=== PATIENT | female | born 1970 | race Caucasian/White ===

== ENCOUNTER 2022-06-21 13:06 | Outpatient (CLI) | payer OTHER, SELFPAY ==
--- NOTE | 2022-06-21 13:20 | CRLHL7_ITS ---
For Patients: As a result of the Century Cures Act, medical imaging exams and procedure reports are released immediately into your electronic medical record. You may view this report before your referring provider. If you have questions, please contact your health care provider. BILATERAL SCREENING MAMMOGRAM WITH COMPUTER-AIDED DETECTION TECHNIQUE: CC and MLO views were obtained. These mammographic images have been obtained using full-field digital technique. These mammographic images were interpreted with the benefit of computer-aided detection. COMPARISON FILM: 07/13/2008. FINDINGS: There are scattered areas of fibroglandular density IMPRESSION: There is no radiographic evidence for malignancy. ASSESSMENT: BI-RADS Category 1: Negative RECOMMENDATION: Routine screening mammogram in 1 year. A lay language report of this examination will be provided to the patient. Olayinka Umaña M.D. Diagnostic Radiologist [email or web address] GABE/Dictated by: Olayinka Umaña MD @ 06/26/2022 8:45:00 AM (Electronically Signed)
== END 2022-06-21 13:07 | disposition home or self-care (01) ==
LOC: MAMMO 13:06
PROVIDERS: Visit Provider Physician Assistant Medical
DX: Z12.31 Encounter for screening mammogram for malignant neoplasm of breast (principal)
CPT/HCPCS: 77063; 77067

== ENCOUNTER 2022-06-25 08:18 | Outpatient (CLI) | payer OTHER, SELFPAY ==
[2022-06-25 08:49] LABS: Basophils Percent Auto 0.6 % (0.0-3.0); Hematocrit 39.2 % (33.0-51.0); Hemoglobin* 13.4 gm/dL (12.0-16.0); Immature Granulocytes Pct Auto 0.2 %; Lymphocytes Percent Auto 24.8 % (20-44); Mean Corpuscular HGB Conc 34 gm/dL (32-36); Mean Corpuscular Hemoglobin 31 pg (26-34); Mean Corpuscular Volume 91 fL (80-100); Monocytes Percent Auto 7.3 % (0.0-11.0); Neutrophils Percent Auto 66.1 % (42.0-72.0); Platelet Count* 435 K/uL (140-440); RDW Coefficient of Variation % 13.3 % (11.5-15.5); Red Blood Count 4.31 m/uL (4.00-5.20); White Blood Count* 12.51 K/uL (4.50-11.00)
[2022-06-25 08:53] LABS: Slide Review Reflex No
[2022-06-25 14:41] LABS: Chloride* 105 mmol/L (96-114)
[2022-06-25 14:42] LABS: Albumin* 4.6 g/dL (3.3-5.0); Potassium* 3.9 mmol/L (3.6-5.1); Sodium* 136 mmol/L (135-149)
[2022-06-25 14:44] LABS: Creatinine* 0.7 mg/dL (0.5-1.5); Estimated Glomerular Filt Rate 104 ml/min
[2022-06-25 14:45] LABS: Alanine Aminotransferase* 24 U/L (4-35); Alkaline Phosphatase* 79 U/L (40-150); Aspartate Amino Transferase* 26 U/L (12-35); Bilirubin Total* 0.3 mg/dL (0.1-1.5); Blood Urea Nitrogen* 10 mg/dL (7-30); Carbon Dioxide* 20 mmol/L (20-32); Glucose* 108 mg/dL (60-115); Total Protein* 7.4 g/dL (6.0-8.3)
[2022-06-25 14:46] LABS: Calcium* 9.5 mg/dL (8.4-10.6); Cholesterol* 225 mg/dL (90-199); HDL Cholesterol* 66 mg/dL (>=50); LDL Cholesterol Calculated 139 mg/dL (<100); Triglycerides* 102 mg/dL (40-149)
[2022-06-25 14:56] LABS: C Reactive Protein* < 0.5 mg/dL (0.5-1.0)
[2022-06-25 15:33] LABS: TSH With Reflex to FT4* 0.834 uIU/mL (0.270-4.200)
== END 2022-06-25 08:19 | disposition home or self-care (01) ==
PROVIDERS: Visit Provider Physician Assistant Medical
DX: Z00.00 Encounter for general adult medical examination without abnormal findings (principal); R19.7 Diarrhea, unspecified; Z13.6 Encounter for screening for cardiovascular disorders; Z13.29 Encounter for screening for other suspected endocrine disorder
CPT/HCPCS: 80053; 80061; 83516; 84443; 85025; 86140

== ENCOUNTER 2022-06-27 12:51 | Emergency (ER) | payer OTHER, SELFPAY ==
[2022-06-27 13:00] VITALS: BP 145/94; PULSE 110; RESP 16; TEMP 36.7; O2SAT 100; BMI 34.2
--- NOTE | 2022-06-27 13:15 | CRLHL7_ITS ---
For Patients: As a result of the Century Cures Act, medical imaging exams and procedure reports are released immediately into your electronic medical record. You may view this report before your referring provider. If you have questions, please contact your health care provider. INDICATION: Abdominal pain TECHNIQUE: CT abdomen and pelvis without contrast COMPARISON: None. FINDINGS: Kidney/ureters: Kidneys are normal in caliber. Punctate bilateral intrarenal calculi. No ureteral stones and no hydronephrosis. No sign of perinephric inflammation. Ureters are normal in caliber. Decompressed bladder. Liver/gallbladder/bile ducts: The liver is normal in size, shape and attenuation. Gallbladder is normal without visualized stones or inflammation. No biliary dilatation. Spleen/pancreas/adrenal glands: The spleen, adrenal glands and pancreas are within normal limits. GI tract: No evidence of bowel obstruction. Normal appendix. Abdominal wall/omentum/peritoneum: No free air or significant free fluid. Mild misting of the mesentery with associated subcentimeter mesenteric lymph nodes. There is some associated mass-effect on the adjacent loops of small bowel. Finding can be seen with sclerosing mesenteritis. Lymph nodes: No enlarged lymph nodes by size criteria. Pelvis: Unremarkable pelvis. Lower chest: Unremarkable. Bones: No acute fracture or gross mass lesion. IMPRESSION: 1. Mild misting of the mesentery with associated subcentimeter mesenteric lymph nodes. There is some associated mass-effect on the adjacent loops of small bowel. Finding can be seen with sclerosing mesenteritis. 2. Chronic diverticulosis without evidence of acute diverticulitis. 3. Punctate bilateral intrarenal calculi. No ureteral stones and no hydronephrosis. Please note that all CT scans at this facility use dose modulation, iterative reconstruction, and/or weight-based dosing when appropriate to reduce radiation dose to as low as reasonably achievable. Dictated by Daquan Castañeda MD @ 06/27/2022 2:04:13 PM (Electronically Signed)
--- NOTE | 2022-06-27 13:17 | ED_ITS ---
HPI - General Adult General Time Seen by Provider: 13:17 Date Seen: 06/27/22 Chief complaint: Abdominal Pain Stated complaint: Gallbladder issue Time Seen by Provider: 06/27/22 13:06 Source: patient Mode of arrival: ambulatory Limitations: no limitations History of Present Illness HPI narrative: Patient is a 52 year white female who reports several month history of intermittent abdominal discomfort after eating. She thought that she was gluten intolerant for long period of time. More recently has had some pain in her right upper quadrant right lateral quadrant and through to her back. This followed last episode of eating [place] fri[facility] Patient denies fever chills, change in bowel or bladder color. Has not had an ultrasound, was being worked up for gluten sensitivity. She sees [facility] for primary care. She reports she had 3 bowel movements no blood over the last couple of hours x3. At this point she feels better she was having right-sided abdominal pain that radiated to her back. As mentioned no fevers, chills, rigors, COVID symptoms, dysuria frequency, hematuria, or hematemesis or melena. Patient presents to the ED on recommendation for primary care doctor Related Data Previous Rx's Medication Instructions Recorded trazodone 50 mg tablet 50 mg PO QDAY #30 tabs 06/20/22 peg 3350-electrolytes 236 240 ml PO Q10M #4,000 mL 06/25/22 gram-22.74 gram-6.74 gram-5.86 gram solution (Golytely) Allergies Allergy/AdvReac Type Severity Reaction Status Date / Time tagaderm Allergy Severe rash Uncoded 06/20/22 12:41 Review of Systems Status of ROS: Reports: 10 or more systems reviewed and unremarkable except as noted in History and below [facility] Family History Mother High blood pressure Sister No problems noted. Son History of kidney cancer, Onset Age: 8 Father Lung cancer Coronary artery disease Social History Narrative: . Two children, sons. Non-smoker Smoking Status: Never smoker Do you use any of these nicotine containing products: None Second hand tobacco smoke exposure: No How often do you have a drink containing alcohol: monthly or less How many standard drinks containing alcohol do you have on a typical day: 1 or 2 How often do you have six or more drinks on one occasion: Less than monthly AUDIT-C Alcohol total score: 2 Non-prescribed substance use: denies use Little interest or pleasure in doing things: not at all Feeling down, depressed, or hopeless: several days service: No Exam Narrative: Exam Narrative: Objective: The patient is in no apparent distress, conversant Vital signs unremarkable other pulse elevated 110 HEENT is unremarkable no scleral icterus Abdomen is nontender, no rebound, no masses Extremities are no edema Neurologic nonfocal Peripheral perfusion is good Skin is warm and dry Const: Vital Signs, click to edit/add: Vital Signs - 24 hr 06/27/22 13:00 Temperature 98.1 F Pulse Rate [Left P ulse Oximeter] 110 H Respiratory Rate 16 Blood Pressure [Ri ght Upper Arm] 145/94 H Pulse Oximetry 100 Oxygen Delivery Me thod Room Air Course Vital Signs Vital signs: Initial Vital Signs Temperature 98.1 F 06/27/22 13:00 Temperature Source Temporal Artery Scan 06/27/22 13:00 Pulse Rate 110 H 06/27/22 13:00 Pulse Rhythm 06/27/22 13:00 Pulse Strength 3+ Normal 06/27/22 13:00 Respiratory Rate 16 06/27/22 13:00 Blood Pressure 145/94 H 06/27/22 13:00 Blood Pressure Mean 111 06/27/22 13:00 Blood Pressure Position Sitting 06/27/22 13:00 Pulse Oximetry 100 06/27/22 13:00 Oxygen Delivery Method 06/27/22 13:00 Vital Signs Temperature 98.1 F 06/27/22 13:00 Pulse Rate 110 H 06/27/22 13:00 Respiratory Rate 16 06/27/22 13:00 Blood Pressure 145/94 H 06/27/22 13:00 Pulse Oximetry 100 06/27/22 13:00 Oxygen Delivery Method 06/27/22 13:00 Temperature 98.1 F 06/27/22 13:00 Pulse Rate 110 H 06/27/22 13:00 Respiratory Rate 16 06/27/22 13:00 Blood Pressure 145/94 H 06/27/22 13:00 Pulse Oximetry 100 06/27/22 13:00 Oxygen Delivery Method 06/27/22 13:00 Medical Decision Making [facility] Narrative Medical decision making narrative: Patient is a 52-year-old perimenopausal female who for the last several months has had postprandial for the most part abdominal pain and diarrhea. I think at this time the most valuable test be a CT scan of the abdomen pelvis rule out inflammatory bowel disease, gallstones, any evidence of obstruction. Will also check laboratories, electrolytes, TSH, will give IV fluid as well. Disposition pending findings above. May actually need a right upper quadrant ultrasound after CT if it demonstrates gallstones. Addendum: No evidence of gallstones, or gallbladder inflammation, white count is just minimally elevated but CRP is negative. There is some evidence of mesenteric inflammation, but this would be more of a chronic issue I am not sure that that would make sense in the setting, but I think consultation with General surgery be appropriate, consider HIDA or gallbladder ultrasound or other diagnostic studies. Patient will gauge in light diet, light activity follow up with General surgery as scheduled thanks Lab Data Labs: Lab Results 06/27/22 06/27/22 06/27/22 Range/Units 13:38 13:40 13:40 WBC 11.95 H (4.50-11.00) K/uL RBC 4.10 (4.00-5.20) m/uL Hgb 12.7 (12.0-16.0) gm/dL Hct 37.7 (33.0-51.0) % MCV 92 (80-100) fL MCH 31 (26-34) pg MCHC 34 (32-36) gm/dL RDW Coeff of Lorena 13.5 (11.5-15.5) % Plt Count 407 (140-440) K/uL Neut % (Auto) 77.5 H (42.0-72.0) % Lymph % (Auto) 15.2 L (20-44) % Kimble % (Auto) 5.8 (0.0-11.0) % Eos % (Auto) 0.3 (0.0-7.0) % Baso % (Auto) 0.5 (0.0-3.0) % Neut # (Auto) 9.30 H (1.7-7.0) K/uL Lymph # (Auto) 1.80 (0.90-2.90) K/uL Kimble # (Auto) 0.70 (0.00-0.90) K/UL Eos # (Auto) 0.00 (0.00-0.50) K/uL Baso # (Auto) 0.10 (0.00-0.30) K/uL Abs Immat Gran (auto) 0.08 (0.00-0.30) K/uL Sodium 137 (135-149) mmol/L Potassium 3.8 (3.6-5.1) mmol/L Chloride 104 (96-114) mmol/L Carbon Dioxide 23 (20-32) mmol/L BUN 12 (7-30) mg/dL Creatinine 0.7 (0.5-1.5) mg/dL Estimated Creat Clear 74.35 Estimated GFR 104 ml/min Glucose 139 H (60-115) mg/dL Calcium 9.1 (8.4-10.6) mg/dL Total Bilirubin 0.2 (0.1-1.5) mg/dL Direct Bilirubin 0.2 (0.0-0.5) mg/dL AST 26 (12-35) U/L ALT 22 (4-35) U/L Alkaline Phosphatase 75 (40-150) U/L C-Reactive Protein < 0.5 L (0.5-1.0) mg/dL Total Protein 7.8 (6.0-8.3) g/dL Albumin 4.7 (3.3-5.0) g/dL Amylase 73 (18-89) U/L TSH (0.270-4.20) uIU/mL Urine Color Yellow (Yellow) Urine Appearance Slightly Cloudy A (Clear) Urine pH 6.0 (5.0-8.5) Ur Specific Garrett >= 1.030 (1.000-1.030) Urine Protein Trace A (Negative) Urine Glucose (UA) Negative (Negative) Urine Ketones 3+ A (Negative) Urine Blood 2+ A (Negative) Urine Nitrite Negative (Negative) Urine Bilirubin Negative (Negative) Urine Urobilinogen 0.2 (0.2-1.0) Ur Leukocyte Esterase Negative (Negative) Urine RBC 2-5 A (0-2) Urine WBC 0-2 (0-5) Ur Squamous Epith Cells Few (None-Few) Urine Bacteria Few A (None) Urine Mucus Few A (None) 06/27/22 Range/Units 13:40 WBC (4.50-11.00) K/uL RBC (4.00-5.20) m/uL Hgb (12.0-16.0) gm/dL Hct (33.0-51.0) % MCV (80-100) fL MCH (26-34) pg MCHC (32-36) gm/dL RDW Coeff of Lorena (11.5-15.5) % Plt Count (140-440) K/uL Neut % (Auto) (42.0-72.0) % Lymph % (Auto) (20-44) % Kimble % (Auto) (0.0-11.0) % Eos % (Auto) (0.0-7.0) % Baso % (Auto) (0.0-3.0) % Neut # (Auto) (1.7-7.0) K/uL Lymph # (Auto) (0.90-2.90) K/uL Kimble # (Auto) (0.00-0.90) K/UL Eos # (Auto) (0.00-0.50) K/uL Baso # (Auto) (0.00-0.30) K/uL Abs Immat Gran (auto) (0.00-0.30) K/uL Sodium (135-149) mmol/L Potassium (3.6-5.1) mmol/L Chloride (96-114) mmol/L Carbon Dioxide (20-32) mmol/L BUN (7-30) mg/dL Creatinine (0.5-1.5) mg/dL Estimated Creat Clear Estimated GFR ml/min Glucose (60-115) mg/dL Calcium (8.4-10.6) mg/dL Total Bilirubin (0.1-1.5) mg/dL Direct Bilirubin (0.0-0.5) mg/dL AST (12-35) U/L ALT (4-35) U/L Alkaline Phosphatase (40-150) U/L C-Reactive Protein (0.5-1.0) mg/dL Total Protein (6.0-8.3) g/dL Albumin (3.3-5.0) g/dL Amylase (18-89) U/L TSH 1.140 (0.270-4.20) uIU/mL Urine Color (Yellow) Urine Appearance (Clear) Urine pH (5.0-8.5) Ur Specific Garrett (1.000-1.030) Urine Protein (Negative) Urine Glucose (UA) (Negative) Urine Ketones (Negative) Urine Blood (Negative) Urine Nitrite (Negative) Urine Bilirubin (Negative) Urine Urobilinogen (0.2-1.0) Ur Leukocyte Esterase (Negative) Urine RBC (0-2) Urine WBC (0-5) Ur Squamous Epith Cells (None-Few) Urine Bacteria (None) Urine Mucus (None) Discharge Plan Discharge Clinical Impression: Abdominal pain Patient Disposition: Home w/ Parent or Adult Condition: Stable Additional Instructions: Light diet, recommend general surgical followup for of her abdominal pain and discomfort. Please make appointment our general surgery clinic for the patient. Light diet, Tylenol as needed, return sooner problems or concerns. continue home meds Appointment scheduled at [facility] with Dr. Don on Saturday, July 04, 2022 at 10:45am, with arrival at 10:30am. Activity Level: No Restrictions Discharge Diet: Heart Healthy (2 gm sodium, low fat) Prescriptions: No Action trazodone 50 mg tablet 50 mg PO QDAY Qty: 30 0RF Rx Instructions: 1 tablet nightly peg 3350-electrolytes [Golytely] 236-22.74-6.74 -5.86 gram recon soln 240 ml PO Q10M Qty: 4000 0RF Rx Instructions: until fecal effluent is clear Follow Up/Referrals: Cary Palomo PA-C [Primary Care Provider] - Stand Alone Forms: MyHealth Info Instructions
[2022-06-27] MEDS: 0.9 % SODIUM CHLORIDE 1000 ml 1,000 ML 6000 ML IV (13:50)
[2022-06-27 14:10] LABS: Albumin* 4.7 g/dL (3.3-5.0); Chloride* 104 mmol/L (96-114); Sodium* 137 mmol/L (135-149)
[2022-06-27 14:11] LABS: Potassium* 3.8 mmol/L (3.6-5.1)
[2022-06-27 14:13] LABS: Amylase* 73 U/L (18-89); Creatinine* 0.7 mg/dL (0.5-1.5); Est. Creatinine Clearance* 74.35; Estimated Glomerular Filt Rate 104 ml/min
[2022-06-27 14:14] LABS: Alanine Aminotransferase* 22 U/L (4-35); Alkaline Phosphatase* 75 U/L (40-150); Aspartate Amino Transferase* 26 U/L (12-35); Bilirubin Direct* 0.2 mg/dL (0.0-0.5); Bilirubin Total* 0.2 mg/dL (0.1-1.5); Blood Urea Nitrogen* 12 mg/dL (7-30); Calcium* 9.1 mg/dL (8.4-10.6); Carbon Dioxide* 23 mmol/L (20-32); Glucose* 139 mg/dL (60-115); Total Protein* 7.8 g/dL (6.0-8.3)
[2022-06-27 14:18] LABS: C Reactive Protein* < 0.5 mg/dL (0.5-1.0)
[2022-06-27 14:32] LABS: Appearance Urine Slightly Cloudy (Clear); Bilirubin Urine Negative (Negative); Blood Urine 2+ (Negative); Color Urine Yellow (Yellow); Glucose Urine Negative (Negative); Ketones Urine 3+ (Negative); Leukocyte Esterase Urine Negative (Negative); Nitrite Urine Negative (Negative); Protein Urine Trace (Negative); Specific Gravity Urine >= 1.030 (1.000-1.030); Squamous Epithelial Cell Urine Few (None-Few); Urobilinogen Urine 0.2 (0.2-1.0); WBC Urine 0-2 (0-5)
[2022-06-27 14:33] LABS: Bacteria Urine Few; Basophils Percent Auto 0.5 % (0.0-3.0); Eosinophils Percent Auto 0.3 % (0.0-7.0); Hematocrit 37.7 % (33.0-51.0); Hemoglobin* 12.7 gm/dL (12.0-16.0); Immature Granulocytes Abs Auto 0.08 K/uL (0.00-0.30); Lymphocytes Percent Auto 15.2 % (20-44); Mean Corpuscular HGB Conc 34 gm/dL (32-36); Mean Corpuscular Hemoglobin 31 pg (26-34); Mean Corpuscular Volume 92 fL (80-100); Monocytes Percent Auto 5.8 % (0.0-11.0); Mucus Urine Few; Neutrophils Percent Auto 77.5 % (42.0-72.0); Platelet Count* 407 K/uL (140-440); RDW Coefficient of Variation % 13.5 % (11.5-15.5); White Blood Count* 11.95 K/uL (4.50-11.00)
[2022-06-27 14:34] LABS: Slide Review Reflex No
== END 2022-06-27 15:03 | disposition home or self-care (01) ==
PROVIDERS: Emergency Provider Family Medicine; PCP Physician Assistant Medical
DX: R10.11 Right upper quadrant pain (principal)
CPT/HCPCS: 36415; 74176; 80048; 80076; 81001; 82150; 84443; 85025; 86140; 87086; 99284; J7030

== ENCOUNTER 2022-07-06 11:57 | Outpatient (CLI) | payer OTHER, SELFPAY | END 2022-07-06 11:58 | disposition home or self-care (01) | LOC: OP CLINIC 11:58 | PROVIDERS: PCP Physician Assistant Medical; Visit Provider Internal Medicine | DX: Z12.11 Encounter for screening for malignant neoplasm of colon (principal); K57.30 Diverticulosis of large intestine without perforation or abscess without bleeding; K21.9 Gastro-esophageal reflux disease without esophagitis | CPT/HCPCS: 43239; 45380; 88305; 99153; J2250; J3010 ==

== ENCOUNTER 2022-11-30 08:09 | Outpatient (CLI) | payer OTHER, SELFPAY ==
[2022-11-30 11:22] LABS: Cholesterol* 210 mg/dL (90-199); Glucose* 108 mg/dL (60-115); HDL Cholesterol* 67 mg/dL (>=50); LDL Cholesterol Calculated 114 mg/dL (<100); Triglycerides* 145 mg/dL (40-149)
== END 2022-11-30 08:10 | disposition home or self-care (01) ==
LOC: NFLDREF 08:09
PROVIDERS: PCP Physician Assistant Medical; Visit Provider Physician Assistant Medical
DX: Z00.00 Encounter for general adult medical examination without abnormal findings (principal); E78.5 Hyperlipidemia, unspecified; Z13.1 Encounter for screening for diabetes mellitus
CPT/HCPCS: 80061; 82947

== ENCOUNTER 2023-07-23 19:22 | Outpatient (CLI) | payer OTHER, SELFPAY ==
--- NOTE | 2023-07-23 19:30 | CRLHL7_ITS ---
For Patients: As a result of the Century Cures Act, medical imaging exams and procedure reports are released immediately into your electronic medical record. You may view this report before your referring provider. If you have questions, please contact your health care provider. BILATERAL SCREENING MAMMOGRAM WITH COMPUTER-AIDED DETECTION AND TOMOSYNTHESIS TECHNIQUE: CC and MLO views were obtained. These mammographic images have been obtained using full-field digital technique. These mammographic images were interpreted with the benefit of computer-aided detection. Breast tomosynthesis was used in this interpretation. COMPARISON FILM: 06/21/22. FINDINGS: There are scattered areas of fibroglandular density. IMPRESSION: There is no radiographic evidence for malignancy. ASSESSMENT: BI-RADS Category 1: Negative RECOMMENDATION: Routine screening mammogram in 1 year. A lay language report of this examination will be provided to the patient. OLAYINKA FOREMAN M.D. Diagnostic Radiologist [email or web address] Transcribed: 07/25/2023, 6:[address]/Dictated by: Olayinka Foreman MD @ 07/25/2023 12:55:00 PM (Electronically Signed)
== END 2023-07-23 19:23 | disposition home or self-care (01) ==
LOC: MAMMO 19:22
PROVIDERS: PCP Physician Assistant Medical; Visit Provider Physician Assistant Medical
DX: Z12.31 Encounter for screening mammogram for malignant neoplasm of breast (principal)
CPT/HCPCS: 77063; 77067

== ENCOUNTER 2023-08-20 08:07 | Outpatient (CLI) | payer OTHER, SELFPAY | END 2023-08-20 08:08 | disposition home or self-care (01) | LOC: NFLDREF 08-21 11:40 | PROVIDERS: PCP Physician Assistant Medical; Referring Provider Physician Assistant Medical; Visit Provider Physician Assistant Medical | DX: Z00.00 Encounter for general adult medical examination without abnormal findings (principal); K90.0 Celiac disease; N92.6 Irregular menstruation, unspecified; E55.9 Vitamin D deficiency, unspecified; E78.5 Hyperlipidemia, unspecified; R03.0 Elevated blood-pressure reading, without diagnosis of hypertension; R19.7 Diarrhea, unspecified | CPT/HCPCS: 80053; 80061; 82306; 83540; 83550 ==

== ENCOUNTER 2023-08-22 10:45 | Outpatient (CLI) | payer OTHER, SELFPAY | END 2023-08-22 10:46 | disposition home or self-care (01) | PROVIDERS: PCP Physician Assistant Medical; Visit Provider Physician Assistant Medical | DX: Z00.00 Encounter for general adult medical examination without abnormal findings (principal); N92.6 Irregular menstruation, unspecified | CPT/HCPCS: 80323; 83001; 84443 ==

== ENCOUNTER 2023-08-28 13:03 | Outpatient (CLI) | payer OTHER, SELFPAY ==
--- NOTE | 2023-08-28 13:00 | CRLHL7_ITS ---
For Patients: As a result of the Century Cures Act, medical imaging exams and procedure reports are released immediately into your electronic medical record. You may view this report before your referring provider. If you have questions, please contact your health care provider. INDICATION: KNOWN CERVICAL POLYP COMPARISON: none TECHNIQUE: 2D preciado scale and color Doppler images were acquired of the pelvis using a transabdominal and transvaginal approach. FINDINGS: Hypoechoic solid nodule in the endocervix with internal vascularity measuring 1.1 x 0.9 x 1.2 cm corresponding to the known cervical polyp. Uterus measures 7.1 cm in length by 4.2 cm in AP diameter by 5.2 cm in transverse dimension. The myometrium has a heterogeneous echotexture. The endometrial lining appears normal and measures 5 mm in composite thickness. The right ovary measures 2.6 x 0.8 x 1.4 cm in size and the left ovary measures 2.4 x 1.4 x 1.5 cm. The ovaries demonstrate normal arterial and venous blood flow on color Doppler analysis. There are no suspicious fluid collections within the cul-de-sac. IMPRESSION: 1.2 cm cervical polyp. Dictated by Olayinka Umaña MD @ 08/29/2023 8:28:07 AM (Electronically Signed)
== END 2023-08-28 13:04 | disposition home or self-care (01) ==
PROVIDERS: PCP Physician Assistant Medical; Visit Provider Physician Assistant Medical
DX: N84.1 Polyp of cervix uteri (principal); N92.6 Irregular menstruation, unspecified
CPT/HCPCS: 76830; 76856

== ENCOUNTER 2024-07-28 18:14 | Outpatient (CLI) | payer OTHER, SELFPAY ==
--- NOTE | 2024-07-28 18:20 | CRLHL7_ITS ---
For Patients: As a result of the Cures Act, medical imaging exams and procedure reports are released immediately into your electronic medical record. You may view this report before your referring provider. If you have questions, please contact your health care provider. BILATERAL SCREENING MAMMOGRAM WITH COMPUTER-AIDED DETECTION AND TOMOSYNTHESIS TECHNIQUE: CC and MLO views were obtained. These mammographic images have been obtained using full-field digital technique. These mammographic images were interpreted with the benefit of computer-aided detection. Breast Tomosynthesis was used in this interpretation. COMPARISON FILM: 06/21/22, 07/23/23. FINDINGS: There are scattered areas of fibroglandular density IMPRESSION: There is no radiographic evidence for malignancy. ASSESSMENT: BI-RADS Category 1: Negative RECOMMENDATION: Routine screening mammogram in 1 year. A lay language report of this examination will be provided to the patient. Olayinka Umaña M.D. Diagnostic Radiologist [email or web address] Transcribed: 2:53 p.moses baltazar/Dictated by: Olayinka Umaña MD @ 08/03/2024 11:50:00 AM (Electronically Signed)
== END 2024-07-28 18:15 | disposition home or self-care (01) ==
LOC: MAMMO 18:15
PROVIDERS: PCP Physician Assistant Medical; Visit Provider Physician Assistant Medical
DX: Z12.31 Encounter for screening mammogram for malignant neoplasm of breast (principal)
CPT/HCPCS: 77063; 77067

== ENCOUNTER 2024-08-25 07:53 | Outpatient (CLI) | payer OTHER, SELFPAY | END 2024-08-25 07:54 | disposition home or self-care (01) | LOC: NFLDREF 10:29 | PROVIDERS: PCP Physician Assistant Medical; Referring Provider Physician Assistant Medical; Visit Provider Physician Assistant Medical | DX: Z00.00 Encounter for general adult medical examination without abnormal findings (principal); E55.9 Vitamin D deficiency, unspecified; E78.5 Hyperlipidemia, unspecified; N95.1 Menopausal and female climacteric states; R03.0 Elevated blood-pressure reading, without diagnosis of hypertension; G47.9 Sleep disorder, unspecified | CPT/HCPCS: 80053; 80061; 80323; 84443; 87086 ==

== ENCOUNTER 2025-08-16 09:07 | Outpatient (CLI) | payer BC, SELFPAY ==
--- NOTE | 2025-08-16 09:15 | CRLHL7_ITS ---
For Patients: As a result of the Century Cures Act, medical imaging exams and procedure reports are released immediately into your electronic medical record. You may view this report before your referring provider. If you have questions, please contact your health care provider. INDICATION: BILATERAL SCREENING MAMMOGRAM, ASYMPTOMATIC 55 Y/O FEMALE COMPARISON: 07/28/2024, 07/23/2023, 06/21/2022 TECHNIQUE: Digital mammogram in CC and MLO projections including computer-aided detection (CAD) and tomosynthesis. BREAST COMPOSITION: There are scattered areas of fibroglandular density. FINDINGS: No suspicious findings. ASSESSMENT: BI-RADS 1 Negative RECOMMENDATION: Annual screening mammogram. A lay language report of this examination will be provided to the patient. Dictated by: Olayinka Umaña MD @ 08/16/2025 10:36:15 (Electronically Signed)
== END 2025-08-16 09:08 | disposition home or self-care (01) ==
LOC: MAMMO 09:09
PROVIDERS: PCP Physician Assistant Medical; Visit Provider Physician Assistant Medical
DX: Z12.31 Encounter for screening mammogram for malignant neoplasm of breast (principal)
CPT/HCPCS: 77063; 77067